=== PATIENT | male | born 1965 | race Caucasian/White ===

== ENCOUNTER → 2021-06-06 | Outpatient (CLI) | payer OTHER | LOC: SLEEP 14:07 | DX: G47.33 Obstructive sleep apnea (adult) (pediatric) (principal); Z86.69 Personal history of other diseases of the nervous system and sense organs | CPT/HCPCS: 95810 ==

== ENCOUNTER → 2021-11-07 | Outpatient (CLI) | payer OTHER | LOC: KOH-I 12:40 | DX: M47.26 Other spondylosis with radiculopathy, lumbar region (principal) | CPT/HCPCS: 72110 ==

== ENCOUNTER → 2022-01-08 | Outpatient (CLI) | payer OTHER | LOC: US 10:00 | DX: N64.4 Mastodynia (principal) | CPT/HCPCS: 76641-LT ==